=== PATIENT | female | born 1950 | race Caucasian/White ===

== ENCOUNTER → 2018-12-15 | Outpatient (CLI) | payer OTHER ==
--- NOTE | 2018-12-15 14:21 | RAD ---
CHEST PA LATERAL History: CHRONIC COUGH X 2 MONTHS Comparison: None. Findings: The cardiomediastinal silhouette is normal. Pulmonary vasculature is normal. Biapical pleural thickening noted. The lungs are clear. No pleural effusion or pneumothorax is seen. There is no acute bone abnormality. Surgical clips involving the epigastric and left subdiaphragmatic region are present. Left axillary surgical clips noted. Bilateral breast implants identified. IMPRESSION: No acute cardiopulmonary process. Electronically signed by: Killian Peters MD (12/15/2018 2:18 PM) [facility]
== END | disposition home or self-care (01) ==
LOC: RAD 13:28
PROVIDERS: ATTEND Internal Medicine
DX: R05 Cough (principal); Z98.82 Breast implant status
CPT/HCPCS: 71046

== ENCOUNTER → 2021-01-10 | Outpatient (CLI) | payer OTHER ==
--- NOTE | 2021-01-11 17:43 | RAD ---
DATE: 01/10/2021 EXAM: MAMMO CHULA SCREEN RT HISTORY: Screening. History of left breast cancer with mastectomy in 1998. COMPARISON: 11/22/2019, 05/14/2017, 12/14/2014 This study was interpreted with the benefit of Computerized Aided Detection (CAD). Breast Density: HETERO The breast parenchyma is heterogenously dense, which could reduce sensitivity of mammography. Breast parenchyma level C. FINDINGS: There are stable asymmetries in the right breast. No suspicious mass, calcification, or architectural distortion. IMPRESSION: No evidence of malignancy. BI-RADS CATEGORY: 1 NEGATIVE RECOMMENDED FOLLOW-UP: 12M 12 MONTH FOLLOW-UP PQRS compliance statement: Patient information was entered into a reminder system with a target due date for the next mammogram. Mammography is a sensitive method for finding small breast cancers, but it does not detect them all and is not a substitute for careful clinical examination. A negative mammogram does not negate a clinically suspicious finding and should not result in delay in biopsying a clinically suspicious abnormality. "Our facility is accredited by the [employer] Mammography Program."
== END ==
LOC: MAMMO 14:12
PROVIDERS: ATTEND Internal Medicine
DX: Z12.31 Encounter for screening mammogram for malignant neoplasm of breast (principal); Z85.3 Personal history of malignant neoplasm of breast
CPT/HCPCS: 77061; 77063; 77067

== ENCOUNTER → 2021-07-15 | Outpatient (CLI) | payer OTHER ==
--- NOTE | 2021-07-15 14:52 | KCIC ---
INDICATION: Screening for osteopenia/osteoporosis. Reason: OSTEOPOROSIS, POST MENOPAUSAL / Spl. Inst ructions: / History: COMPARISON: None. TECHNIQUE: Bone densitometry was performed through the lumbar spine and proximal femur. IMPRESSION: Lumbar Spine: BMD: 0.76 T-Score: -2.6 Range: Osteoporotic Proximal Femur: BMD: 0.73 T-Score: -1.7 Range: Osteopenic World Health Organization Criteria for Bone Density: T-Score: > -1.0: Normal Range < -1.0 to -2.5: Osteopenic Range < -2.5: Osteoporotic Range Electronically signed by: Ovidio Padilla MD (07/15/2021 2:50 PM) [id number]
== END ==
LOC: KCIC DEXA 13:55
PROVIDERS: ATTEND Internal Medicine
DX: M81.0 Age-related osteoporosis without current pathological fracture (principal); Z78.0 Asymptomatic menopausal state
CPT/HCPCS: 77080